=== PATIENT | female | born 1940 | race Caucasian/White ===

== ENCOUNTER 2021-05-08 15:21 | Emergency (ER) | payer MEDICARE, OTHER ==
[~2021-05-08 15:21] MED LIST: ANUSOL HC SUPP1 SUPP PR; CLARITIN10 MG PO; COLACE 100MG C100 MG PO; CYCLOBENZAPRINE10 MG PO; CYMBALTA 30 MG30 MG PO; ELIQUIS 2.5 MG2.5 MG PO; FIBER LAXATIVE500 MG PO; FLOVENT 110 MC7.9 GM INH; FLOVENT 110.088 GM/I INH; LACTULOSE10 GM/15 M PO; LOPRESSOR 25 MG25 MG PO; LORTAB 5-325 M1 EACH PO; MECLIZINE HCL12.5 MG PO; METOPROLOL TART25 MG PO; NATURAL LAXATIV25 MG PO; NEURONTIN 300300 MG PO; NORVASC2.5 MG PO; PRAVACHOL40 MG PO; PREDNISONE 10 M10 MG PO; PROAIR DIGIHAL90 MCG INH; PROBIOTIC1 EAC3 PO; PROTONIX40 MG PO; SENOKOT8.6 MG PO; STOOL SOFTENER100 MG PO; VALIUM 2 MG TAB2 MG PO; VITAMIN B COMP1 EACH PO; VITAMIN D 11000 UNIT PO; XANAX0.25 MG PO; [UNRECOGNIZED DRUG - OTHER] PO; [UNRECOGNIZED DRUG - OTHER] PO
[2021-05-08 16:32] LABS: HEMOGLOBIN 12.7 gm/dl (12.3-15.3); RED BLOOD COUNT 4.06 M/UL (4.00-5.10); WHITE BLOOD COUNT 11.4 K/UL (4.5-11.0)
[2021-05-08] MEDS ORDERED: OMNICEF 300 MG300 MG PO (18:05)
[2021-05-08] MEDS ORDERED: Voltaren Gel 1 % TOP (18:05)
== END 2021-05-08 19:28 | disposition home or self-care (01) ==
LOC: ER1 15:21
PROVIDERS: Nurse Practitioner
DX: S30.0XXA Contusion of lower back and pelvis, initial encounter (principal); M25.511 Pain in right shoulder; N39.0 Urinary tract infection, site not specified; I10 Essential (primary) hypertension; Z86.73 Personal history of transient ischemic attack (TIA), and cerebral infarction without residual deficits; Z79.02 Long term (current) use of antithrombotics/antiplatelets; Z88.6 Allergy status to analgesic agent; Z88.1 Allergy status to other antibiotic agents; M53.3 Sacrococcygeal disorders, not elsewhere classified; Z20.822 Contact with and (suspected) exposure to COVID-19; W19.XXXA Unspecified fall, initial encounter
CPT/HCPCS: 0240U; 70450; 71045; 72100; 72220; 73030; 80053; 81001; 82550; 82553; 83874; 84484; 85025; 87086; 93005; 96374; 99284; J0696; J7030

== ENCOUNTER 2021-07-22 14:40 | Inpatient (IN) | payer MEDICARE, OTHER ==
[~2021-07-22] VITALS: Ht 167.6 cm; Wt 86.6 kg
[~2021-07-22 14:40] MED LIST changes: +OMNICEF 300 MG300 MG PO; +Voltaren Gel 1 % TOP
[2021-07-22 16:18] LABS: HEMOGLOBIN 13.6 gm/dl (12.3-15.3); RED BLOOD COUNT 4.16 M/UL (4.00-5.10); WHITE BLOOD COUNT 13.5 K/UL (4.5-11.0)
[2021-07-22] MEDS ORDERED: HYDROCODON-ACE1 EAC2 PO (18:39)
[2021-07-22] MEDS ORDERED: ESTRACE42.5 GM VG (18:39)
[2021-07-22] MEDS ORDERED: DILTIAZEM 24HR120 M1 PO (18:40)
[2021-07-22] MEDS ORDERED: LISINOPRIL10 MG PO (18:40)
[2021-07-22] MEDS ORDERED: HYDROXYZINE HCL25 MG PO (18:41)
[2021-07-22] MEDS ORDERED: LORATADINE10 MG PO (18:41)
[2021-07-22] MEDS ORDERED: CARBIDOPA-LEVO1 EA14 PO (18:42)
[2021-07-22] MEDS ORDERED: COD LIVER OIL1 EACH PO (18:42)
[2021-07-22] MEDS ORDERED: VITAMIN C500 M4 PO (18:43)
[2021-07-22] MEDS ORDERED: VITAMIN B-121000 MCG PO (18:43)
[2021-07-22] MEDS ORDERED: VITAMIN D325 MCG PO (18:44)
[2021-07-22] MEDS ORDERED: DIAZEPAM2 MG PO (18:50)
[2021-07-23 06:14] LABS: HEMOGLOBIN 12.2 gm/dl (12.3-15.3); RED BLOOD COUNT 3.75 M/UL (4.00-5.10); WHITE BLOOD COUNT 10.2 K/UL (4.5-11.0)
[2021-07-24 06:31] LABS: HEMOGLOBIN 12.2 gm/dl (12.3-15.3); RED BLOOD COUNT 3.79 M/UL (4.00-5.10)
[2021-07-25 04:07] LABS: HEMOGLOBIN 12.3 gm/dl (12.3-15.3); RED BLOOD COUNT 3.82 M/UL (4.00-5.10); WHITE BLOOD COUNT 12.4 K/UL (4.5-11.0)
[2021-07-25] MEDS ORDERED: FUROSEMIDE20 MG PO (09:00)
[2021-07-25] MEDS ORDERED: OMNICEF 300 MG300 MG PO (09:00)
--- NOTE | 2021-07-25 11:56 | NUR ---
RN ATTEMPTED TO CALL REPORT TO [facility]. SEGUN STATED SHE WOULD GIVE HOME HEALTH NURSE RN'S CALL BACK NUMBER FOR REPORT.
--- NOTE | 2021-07-25 13:23 | NUR ---
RN ATTEMPTED TO CALL [facility] AND WAS TOLD THEY DIDN'T KNOW IF THEY WOULD ACCEPT HER. RN NOTIFIED CASE MANAGEMENT SHASHREE AND SHE INSTRUCTED RN THAT THEY HAD EVERYTHING THEY NEEDED AND PATIENT COULD BE DISCHARGED. MADE AWARE.
== END 2021-07-25 14:03 | disposition home health service (06) | DRG 193 ==
LOC: ER1 14:40 → M/S 17:31 → CDU 17:31 → M/S 21:31
PROVIDERS: Emergency Medicine; Internal Medicine; ADMIT Internal Medicine
PROC: B24BZZZ Ultrasonography of Heart with Aorta (ICD-10-PCS; principal; 2021-07-24)
DX: J18.9 Pneumonia, unspecified organism (principal); I50.33 Acute on chronic diastolic (congestive) heart failure; J44.0 Chronic obstructive pulmonary disease with (acute) lower respiratory infection; I13.0 Hypertensive heart and chronic kidney disease with heart failure and stage 1 through stage 4 chronic kidney disease, or unspecified chronic kidney disease; J84.10 Pulmonary fibrosis, unspecified; N18.30 Chronic kidney disease, stage 3 unspecified; Z20.822 Contact with and (suspected) exposure to COVID-19; I49.5 Sick sinus syndrome; E78.5 Hyperlipidemia, unspecified; Z96.1 Presence of intraocular lens; I48.0 Paroxysmal atrial fibrillation; D72.829 Elevated white blood cell count, unspecified; T38.0X5A Adverse effect of glucocorticoids and synthetic analogues, initial encounter; Z99.81 Dependence on supplemental oxygen; Z86.73 Personal history of transient ischemic attack (TIA), and cerebral infarction without residual deficits; Z79.01 Long term (current) use of anticoagulants; Z79.899 Other long term (current) drug therapy; Z87.891 Personal history of nicotine dependence; Z98.41 Cataract extraction status, right eye; Z98.42 Cataract extraction status, left eye; Z88.5 Allergy status to narcotic agent; Z88.2 Allergy status to sulfonamides; Z91.81 History of falling; Z98.890 Other specified postprocedural states; Z90.89 Acquired absence of other organs; Z82.49 Family history of ischemic heart disease and other diseases of the circulatory system; Z80.1 Family history of malignant neoplasm of trachea, bronchus and lung; Z79.52 Long term (current) use of systemic steroids
CPT/HCPCS: ECHO; 36415; 71045; 80048; 80053; 81001; 82550; 82553; 83605; 83735; 83880; 84439; 84443; 84484; 85025; 85027; 87040; 93005; 93306; 93970; 94640; 94760; 96374; 96375; 97116-GP-CQ; 97161; 97530; 97530-GP-CQ; 99285; J0696; J1940; U0002

== ENCOUNTER 2021-08-29 13:04 | Inpatient (IN) | payer MEDICARE, OTHER ==
[~2021-08-29] VITALS: Ht 167.6 cm; Wt 81.7 kg
[~2021-08-29 13:04] MED LIST changes: +CARBIDOPA-LEVO1 EA14 PO; +COD LIVER OIL1 EACH PO; +DIAZEPAM2 MG PO; +DILTIAZEM 24HR120 M1 PO; +ESTRACE42.5 GM VG; +FUROSEMIDE20 MG PO; +HYDROCODON-ACE1 EAC2 PO; +HYDROXYZINE HCL25 MG PO; +LISINOPRIL10 MG PO; +LORATADINE10 MG PO; +VITAMIN B-121000 MCG PO; +VITAMIN C500 M4 PO; +VITAMIN D325 MCG PO
[2021-08-29 13:22] LABS: HEMOGLOBIN 13.3 gm/dl (12.3-15.3); RED BLOOD COUNT 4.15 M/UL (4.00-5.10); WHITE BLOOD COUNT 10.6 K/UL (4.5-11.0)
[2021-08-31 01:41] LABS: HEMOGLOBIN 12.2 gm/dl (12.3-15.3); RED BLOOD COUNT 3.76 M/UL (4.00-5.10); WHITE BLOOD COUNT 8.9 K/UL (4.5-11.0)
[2021-08-31 01:57] LABS: BUN/CREATININE RATIO 22 (0-10)
[2021-09-01 09:54] LABS: HEMOGLOBIN 12.5 gm/dl (12.3-15.3); RED BLOOD COUNT 3.9 M/UL (4.00-5.10); WHITE BLOOD COUNT 10.8 K/UL (4.5-11.0)
[2021-09-01 10:34] LABS: BUN/CREATININE RATIO 16 (0-10)
[2021-09-03 08:07] LABS: HEMOGLOBIN 11.9 gm/dl (12.3-15.3); RED BLOOD COUNT 3.7 M/UL (4.00-5.10)
[2021-09-03 08:14] LABS: BUN/CREATININE RATIO 20 (0-10)
--- NOTE | 2021-09-03 13:45 | NUR ---
PT TAKEN TO KILN BURNER FOR EP STUDY AT 1030.
[2021-09-03 20:06] LABS: HEMOGLOBIN 10.2 gm/dl (12.3-15.3); WHITE BLOOD COUNT 11.5 K/UL (4.5-11.0)
[2021-09-03 20:09] LABS: RED BLOOD COUNT 3.18 M/UL (4.00-5.10)
[2021-09-04 05:09] LABS: HEMOGLOBIN 10.4 gm/dl (12.3-15.3); RED BLOOD COUNT 3.24 M/UL (4.00-5.10); WHITE BLOOD COUNT 10.7 K/UL (4.5-11.0)
[2021-09-04 05:36] LABS: BUN/CREATININE RATIO 18 (0-10)
[2021-09-05 04:49] LABS: HEMOGLOBIN 9.7 gm/dl (12.3-15.3); WHITE BLOOD COUNT 10.5 K/UL (4.5-11.0)
[2021-09-05 04:53] LABS: RED BLOOD COUNT 2.91 M/UL (4.00-5.10)
[2021-09-05 05:00] LABS: BUN/CREATININE RATIO 21 (0-10)
[2021-09-06 02:18] LABS: HEMOGLOBIN 9.3 gm/dl (12.3-15.3); RED BLOOD COUNT 2.84 M/UL (4.00-5.10); WHITE BLOOD COUNT 11.1 K/UL (4.5-11.0)
[2021-09-06 03:04] LABS: BUN/CREATININE RATIO 19 (0-10)
[2021-09-07 03:03] LABS: HEMOGLOBIN 9.1 gm/dl (12.3-15.3); RED BLOOD COUNT 2.81 M/UL (4.00-5.10); WHITE BLOOD COUNT 10.5 K/UL (4.5-11.0)
[2021-09-08 03:00] LABS: BUN/CREATININE RATIO 21 (0-10)
[2021-09-09 02:21] LABS: BUN/CREATININE RATIO 20 (0-10)
[2021-09-09] MEDS ORDERED: HYDROCODON-ACE1 EAC2 PO (13:52)
[2021-09-09] MEDS ORDERED: ELIQUIS 5 MG TAB5 MG PO (13:52)
[2021-09-09] MEDS ORDERED: BETAPACE 80MG T80 MG PO (13:52)
[2021-09-09] MEDS ORDERED: PREPARATION H C26 GM PR (13:54)
[2021-09-09] MEDS ORDERED: ZOFRAN ODT 4 MG4 MG SL (13:55)
== END 2021-09-09 16:24 | DRG 273 ==
LOC: ER1 13:04 → PROG CARE 18:51 → M/S 18:51 → CDU 18:51 → CCU 18:51 → M/S 22:00 → PROG CARE 08-30 22:34 → CCU 09-01 07:58 → PROG CARE 09-05 16:01
PROVIDERS: Internal Medicine; Internal Medicine Critical Care Medicine; ADMIT Internal Medicine
PROC: 0HQEXZZ Repair Left Lower Arm Skin, External Approach (ICD-10-PCS; 2021-08-29)
PROC: B24BZZZ Ultrasonography of Heart with Aorta (ICD-10-PCS; principal; 2021-09-03)
PROC: 02583ZZ Destruction of Conduction Mechanism, Percutaneous Approach (ICD-10-PCS; 2021-09-03)
PROC: 4A023FZ Measurement of Cardiac Rhythm, Percutaneous Approach (ICD-10-PCS; 2021-09-03)
PROC: 4A0234Z Measurement of Cardiac Electrical Activity, Percutaneous Approach (ICD-10-PCS; 2021-09-03)
PROC: 02K83ZZ Map Conduction Mechanism, Percutaneous Approach (ICD-10-PCS; 2021-09-03)
DX: I47.1 Supraventricular tachycardia (principal); Z20.822 Contact with and (suspected) exposure to COVID-19; I63.9 Cerebral infarction, unspecified; I61.9 Nontraumatic intracerebral hemorrhage, unspecified; J96.11 Chronic respiratory failure with hypoxia; I48.0 Paroxysmal atrial fibrillation; I95.2 Hypotension due to drugs; G20 Parkinson's disease; I12.9 Hypertensive chronic kidney disease with stage 1 through stage 4 chronic kidney disease, or unspecified chronic kidney disease; L89.322 Pressure ulcer of left buttock, stage 2; L89.312 Pressure ulcer of right buttock, stage 2; I08.3 Combined rheumatic disorders of mitral, aortic and tricuspid valves; J84.10 Pulmonary fibrosis, unspecified; T50.995A Adverse effect of other drugs, medicaments and biological substances, initial encounter; Z96.698 Presence of other orthopedic joint implants; R29.6 Repeated falls; K59.00 Constipation, unspecified; N18.30 Chronic kidney disease, stage 3 unspecified; I48.20 Chronic atrial fibrillation, unspecified; W18.30XA Fall on same level, unspecified, initial encounter; R26.89 Other abnormalities of gait and mobility; I49.5 Sick sinus syndrome; Z96.1 Presence of intraocular lens; R53.81 Other malaise; G89.29 Other chronic pain; S41.012A Laceration without foreign body of left shoulder, initial encounter; S50.312A Abrasion of left elbow, initial encounter; Z79.01 Long term (current) use of anticoagulants; Z86.73 Personal history of transient ischemic attack (TIA), and cerebral infarction without residual deficits; Z90.49 Acquired absence of other specified parts of digestive tract; Z87.01 Personal history of pneumonia (recurrent); Y92.009 Unspecified place in unspecified non-institutional (private) residence as the place of occurrence of the external cause; Z87.891 Personal history of nicotine dependence; Z98.42 Cataract extraction status, left eye; Z98.41 Cataract extraction status, right eye; Z88.2 Allergy status to sulfonamides; Z88.8 Allergy status to other drugs, medicaments and biological substances; Z99.81 Dependence on supplemental oxygen
CPT/HCPCS: ECHO; 0240U; 12002; 36415; 70450; 70551; 71045; 73030; 73070; 80048; 80053; 81001; 82550; 82553; 82962; 83036; 83605; 83735; 84100; 84439; 84443; 84484; 85025; 85027; 85347; 87086; 92960; 93005; 93306; 93609; 93620; 93621; 93622; 93623; 94640; 94760; 97110; 97116-GP-CQ; 97161; 97164; 97165; 97168; 97530; 97530-GP-CQ; 99152; 99153; 99285; C1730; C1733; C1760; C1766; C1769; C1894; J0153; J1644; J1742; J2250; J2370; J2405; J3010; J7030; J7040; Q9965

== ENCOUNTER 2021-11-22 00:03 | Inpatient (IN) | payer MEDICARE, OTHER ==
[~2021-11-22] VITALS: Ht 167.6 cm; Wt 83.5 kg
[~2021-11-22 00:03] MED LIST changes: +BETAPACE 80MG T80 MG PO; +ELIQUIS 5 MG TAB5 MG PO; +PREPARATION H C26 GM PR; +ZOFRAN ODT 4 MG4 MG SL
[2021-11-22 00:30] LABS: HEMOGLOBIN 11.6 gm/dl (12.3-15.3); RED BLOOD COUNT 3.97 M/UL (4.00-5.10); WHITE BLOOD COUNT 10.9 K/UL (4.5-11.0)
[2021-11-22 00:50] LABS: BUN/CREATININE RATIO 19 (0-10)
[2021-11-22] MEDS ORDERED: AMIODARONE HCL200 MG PO (08:38)
[2021-11-22] MEDS ORDERED: ELIQUIS2.5 MG PO (08:39)
[2021-11-22] MEDS ORDERED: HYDROCODON-ACE1 EAC2 PO (08:40)
[2021-11-22] MEDS ORDERED: LASIX40 MG PO (08:41)
[2021-11-22] MEDS ORDERED: DIAZEPAM2 MG PO (08:46)
[2021-11-22] MEDS ORDERED: STOOL SOFTENER100 MG PO (11:19)
[2021-11-25 05:37] LABS: HEMOGLOBIN 10.6 gm/dl (12.3-15.3); RED BLOOD COUNT 3.66 M/UL (4.00-5.10); WHITE BLOOD COUNT 9.9 K/UL (4.5-11.0)
[2021-11-26 06:14] LABS: HEMOGLOBIN 10.2 gm/dl (12.3-15.3); RED BLOOD COUNT 3.51 M/UL (4.00-5.10)
[2021-11-26 06:31] LABS: BUN/CREATININE RATIO 25 (0-10)
[2021-11-26] MEDS ORDERED: HYDROCODON-ACE1 EAC2 PO (11:25)
[2021-11-26] MEDS ORDERED: AMLODIPINE BESYL5 MG PO (11:25)
[2021-11-26] MEDS ORDERED: LISINOPRIL10 MG PO (11:25)
[2021-11-26] MEDS ORDERED: DIAZEPAM2 MG PO (11:25)
[2021-11-26] MEDS ORDERED: IPRAT-ALBUT 0.5-3 ML NEB (11:25)
[2021-11-26] MEDS ORDERED: ASPIRIN EC81 MG PO (11:25)
[2021-11-26] MEDS ORDERED: ATORVASTATIN CA20 MG PO (11:25)
[2021-11-26] MEDS ORDERED: ELIQUIS 5 MG TAB5 MG PO (11:25)
[2021-11-26] MEDS ORDERED: PROTONIX 40 MG40 M1 PO (11:32)
[2021-11-26] MEDS ORDERED: HYDRALAZINE HCL25 MG PO (12:13)
[2021-11-26] MEDS ORDERED: DOXYCYCLINE HY100 M2 PO (12:13)
[2021-11-26] MEDS ORDERED: OMNICEF 300 MG300 MG PO (12:13)
== END 2021-11-26 17:35 | DRG 64 ==
LOC: ER1 00:03 → MED SURG 4 01:39 → CDU 01:39 → MED SURG 4 03:49
PROVIDERS: Internal Medicine; Physician Assistant; ADMIT Internal Medicine
PROC: B24BZZZ Ultrasonography of Heart with Aorta (ICD-10-PCS; principal; 2021-11-26)
DX: I63.49 Cerebral infarction due to embolism of other cerebral artery (principal); G93.6 Cerebral edema; G81.94 Hemiplegia, unspecified affecting left nondominant side; I48.0 Paroxysmal atrial fibrillation; J84.10 Pulmonary fibrosis, unspecified; G20 Parkinson's disease; E78.5 Hyperlipidemia, unspecified; I12.9 Hypertensive chronic kidney disease with stage 1 through stage 4 chronic kidney disease, or unspecified chronic kidney disease; N18.30 Chronic kidney disease, stage 3 unspecified; I16.0 Hypertensive urgency; R53.81 Other malaise; R31.9 Hematuria, unspecified; H53.8 Other visual disturbances; R47.81 Slurred speech; I95.1 Orthostatic hypotension; J40 Bronchitis, not specified as acute or chronic; Z79.01 Long term (current) use of anticoagulants; Z86.73 Personal history of transient ischemic attack (TIA), and cerebral infarction without residual deficits; Z87.19 Personal history of other diseases of the digestive system; Z79.82 Long term (current) use of aspirin; Z98.42 Cataract extraction status, left eye; Z98.41 Cataract extraction status, right eye; Z93.3 Colostomy status; Z88.2 Allergy status to sulfonamides; Z88.8 Allergy status to other drugs, medicaments and biological substances
CPT/HCPCS: ECHO; 36415; 70450; 70551; 71045; 80048; 80053; 81001; 82550; 82553; 83605; 84484; 85025; 85027; 87086; 92526; 92610; 93005; 93306; 93880; 94640; 94664; 94760; 97110-GP-CQ; 97116-GP-CQ; 97162; 97165; 97530; 97530-GP-CQ; 97535; 99285; U0002